=== PATIENT | male | born 1980 | race Caucasian/White ===

== ENCOUNTER 2021-09-26 07:11 | Emergency (ER) | payer OTHER ==
[~2021-09-26] VITALS: Ht 177.8 cm; Wt 70.3 kg
--- NOTE | 2021-09-26 07:28 | NUR ---
SEEN AND EXAMINED BY .
--- NOTE | 2021-09-26 07:40 | NUR ---
OIL WE[employer]OOTER AT BEDSIDE FOR XRAY.
[2021-09-26] MEDS ORDERED: TDAP [DIPH/PERTUSSIS/TET] 0.5 ML VIAL IM ONE ×2 (08:30→08:31)
--- NOTE | 2021-09-26 08:53 | NUR ---
SPLINTING DONE ON THE L WRIST.
[2021-09-26 09:04] VITALS: BP 115/84
--- NOTE | 2021-09-26 09:04 | NUR ---
pt is splinted. d/c in stable condition.
== END 2021-09-26 09:05 | disposition home or self-care (01) ==
LOC: ER 07:15
DX: S62.102A Fracture of unspecified carpal bone, left wrist, initial encounter for closed fracture (principal); S63.501A Unspecified sprain of right wrist, initial encounter; V29.9XXA Motorcycle rider (driver) (passenger) injured in unspecified traffic accident, initial encounter; Y93.89 Activity, other specified; Y92.89 Other specified places as the place of occurrence of the external cause; Y99.8 Other external cause status; S80.02XA Contusion of left knee, initial encounter; S60.512A Abrasion of left hand, initial encounter
CPT/HCPCS: 73090-TC; 73110; 90715